=== PATIENT | male | born 1980 | race Caucasian/White ===

== ENCOUNTER 2016-11-13 12:02 | Emergency (ER) | payer BC, OTHER ==
[2016-11-13] MEDS ORDERED: IBUPROFEN 800 MG TABLET ONE (13:00)
--- NOTE | 2016-11-13 14:20 | US ---
SCROTUM CONTENTS COMPARISON: None. HISTORY: Mastectomy 11/04/2016. Swelling for 4 days and pain for 5 days. No fever. Left-sided bruising. FINDINGS: Right testicle: 4.8 x 2.7 x 3.4 cm. Normal echogenicity. No mass. Normal blood flow. Right epididymis: 1.2 x 0.5 x 0.8 cm. Normal blood flow. Right varicocele: None Right hydrocele: None Left testicle: 4.2 x 3.1 x 3.2 cm. Normal echogenicity. No mass. Normal blood flow. Left epididymis: 9 x 7 x 9 mm. Normal blood flow. Left varicocele: None Left hydrocele: Small. Left internal canal: Complex fluid collection, 4.1 x 3.6 x 5.0 cm. IMPRESSION: 1. Hematoma in the left inguinal canal, 4.1 x 3.6 x 5.0 cm. Small left hydrocele. Normal blood flow to the left testicle and epididymis. The results were discussed with Abhay Peters DO 11/13/2016 at 14:15
== END 2016-11-13 14:25 | disposition home or self-care (01) ==
LOC: ED 12:02
DX: N99.840 Postprocedural hematoma of a genitourinary system organ or structure following a genitourinary system procedure (principal); N50.812 Left testicular pain; Z98.52 Vasectomy status